=== PATIENT | female | born 1995 | race Caucasian/White ===

== ENCOUNTER 2018-09-17 18:10 | Emergency (ER) | payer SELFPAY ==
[~2018-09-17] VITALS: Ht 167.6 cm; Wt 73.8 kg
[~2018-09-17 18:10] MED LIST: ALBU8.5H8; LORA-407
[2018-09-17 18:15] VITALS: Ht 167.6 cm; Wt 73.8 kg
[2018-09-17] MEDS ORDERED: BENZ-6 PO (20:18)
--- NOTE | 2018-09-17 20:24 | ERD ---
ER Documentation Chief Complaint Chief Complaint Complains of a cough with vomiting x 1 week HPI 23 year old female patient with a past medical history of asthma the ED complaining of a productive cough that started 1 week ago. Patient reports that she is tried taking Promethazine DM without any relief of her symptoms. Denies any neck stiffness, fever, chills, nausea, vomiting, diarrhea chest pain, shortness of breath, wheezing. Denies any sick contacts. ROS All systems reviewed and are negative except as per history of present illness. Medications Home Meds Active Scripts Benzonatate* (Tessalon Perle*) 100 Mg Capsule, 100 MG PO Q8H PRN for COUGH, #20 CAP Prov:DANAE CHEEK PA-C 09/17/18 Reported Medications Albuterol Sulfate* (Proair HFA*) 8.5 Gm Hfa.aer.ad 06/27/10 Loratadine (Claritin) 10 Mg Tablet 06/27/10 Allergies Allergies: Coded Allergies: Acetaminophen (Verified Allergy, Mild, rash, 06/27/10) Chlorpheniramine (Verified Allergy, Mild, rash, 06/27/10) Dextromethorphan (Verified Allergy, Mild, rash, 06/27/10) Phenylpropanolamine (Verified Allergy, Mild, rash, 06/27/10) PMhx/Soc History of Surgery: No Hx Neurological Disorder: No Hx Respiratory Disorders: Yes (asthma) Hx Cardiac Disorders: No Hx Psychiatric Problems: No Hx Alcohol Use: No Hx Substance Use: No Hx Tobacco Use: No FmHx Family History: No diabetes, No coronary disease Physical Exam Vitals Vital Signs Date Temp Pulse Resp B/P (MAP) Pulse Ox O2 O2 Flow FiO2 Time Delivery Rate 09/17/18 98.8 84 20 134/83 99 18:15 (100) Physical Exam Const: [id number]-kfg-[id number], well-nourished. In no acute distress. Head: Atraumatic, normocephalic Eyes: Normal Conjunctiva without injection. No purulent discharge. PERRL. EOMI ENT: Normal external ear. Ear canal without erythema. Tympanic membrane pearly marino without effusion or bulging. Nasal canal clear with normal turbinates. Moist oropharynx without tonsillar exudates. Non-erythematous pharynx. Uvula midline. No drooling. No trismus. Neck: Full range of motion. No meningismus. No cervical lymphadenopathy. Resp: Clear to auscultation bilaterally. No wheezing, rhonchi, rales, or crackles. No accessory muscle use. No retractions. Cardio: Regular rate and rhythm. No murmurs, rubs or gallops. Abd: Soft, non tender, non distended. Normal bowel sounds. No palpable masses. No rebound tenderness. No guarding. Skin: No petechiae or rashes Back: No midline tenderness. No CVA tenderness. Ext: No cyanosis, or edema. Neur: Awake and alert. Psych: Normal Mood and Affect Results 24 hrs Laboratory Tests Test 09/17/18 20:27 POC Beta HCG, Qualitative NEGATIVE Procedures/MDM 23-year-old female patient with past medical history of asthma presents to ED complaining of cough that started 1 week ago. Patient is afebrile and nontoxic- appearing. This patient presents to the ED with symptoms consistent with a viral acute upper respiratory infection. Patient's physical exam include lungs which were clear to auscultation and a normal pulse oximetry. There is a low suspicion for pneumonia, pneumothorax, mononucleosis, pulmonary embolism, epiglottitis, otitis media, otitis externa, viral/strep pharyngitis, sinusitis, myocarditis, pericarditis, endocarditis, peritonsillar abscess, mastoiditis, retropharyngeal abscess, meningitis, sepsis, acute abdomen or other emergent conditions. Fluids, rest, and symptomatic treatment are recommended for the management of patient's symptoms. Diagnosis: Cough Discharge medications: Ronald Story Follow up with primary care physician in 1-2 days. Instructed patient to return to the ED sooner for any worsening symptoms. Patient's questions were answered. Patient is hemodynamically stable. Patient understood and agreed with discharge plan. Patient discharged stable. Disclaimer: Inadvertent spelling and grammatical errors are likely due to EHR/dictation software use and do not reflect on the overall quality of patient care. Also, please note that the electronic time recorded on this note does not necessarily reflect the actual time of the patient encounter. Departure Diagnosis: Primary Impression: Cough Condition: Stable Patient Instructions: Uri, Viral, No Abx (Adult) Referrals: COMMUNITY CLINICS YOU HAVE RECEIVED A MEDICAL SCREENING EXAM AND THE RESULTS INDICATE THAT YOU DO NOT HAVE A CONDITION THAT REQUIRES URGENT TREATMENT IN THE EMERGENCY DEPARTMENT. FURTHER EVALUATION AND TREATMENT OF YOUR CONDITION CAN WAIT UNTIL YOU ARE SEEN IN YOUR DOCTORS OFFICE WITHIN THE NEXT 1-2 DAYS. IT IS YOUR RESPONSIBILITY TO MAKE AN APPOINTMENT FOR FOLOW-UP CARE. IF YOU HAVE A PRIMARY DOCTOR --you should call your primary doctor and schedule an appointment IF YOU DO NOT HAVE A PRIMARY DOCTOR YOU CAN CALL OUR PHYSICIAN REFERRAL HOTLINE AT IF YOU CAN NOT AFFORD TO SEE A PHYSICIAN YOU CAN CHOSE FROM THE FOLLOWING [facility] [address] [facility] [address] [facility] [address] [facility] [address] [facility] [address] [facility]. [facility] [address] [facility]. [facility] YOU HAVE RECEIVED A MEDICAL SCREENING EXAM AND THE RESULTS INDICATE THAT YOU DO NOT HAVE A CONDITION THAT REQUIRES URGENT TREATMENT IN THE EMERGENCY DEPARTMENT. FURTHER EVALUATION AND TREATMENT OF YOUR CONDITION CAN WAIT UNTIL YOU ARE SEEN IN YOUR DOCTORS OFFICE WITHIN THE NEXT 1-2 DAYS. IT IS YOUR RESPONSIBILITY TO MAKE AN APPOINTMENT FOR FOLOW-UP CARE. IF YOU HAVE A PRIMARY DOCTOR --you should call your primary doctor and schedule and appointment IF YOU DO NOT HAVE A PRIMARY DOCTOR YOU CAN CALL OUR PHYSICIAN REFERRAL HOTLINE AT . IF YOU CAN NOT AFFORD TO SEE A PHYSICIAN YOU CAN CHOSE FROM THE FOLLOWING [facility] INSTITUTIONS: [facility] [address] [place] [address] [facility] [address] [place] [address] [facility] [address] [place] [address] [facility] Additional Instructions: Call your primary care doctor TOMORROW for an appointment during the next 2-3 days.See the doctor sooner or return here if your condition worsens before your appointment time. DANAE CHEEK PA-C Sep 17, 2018 20:24
[2018-09-17 20:58] VITALS: BP 122/71; PULSE 78; RESP 18
== END 2018-09-17 20:59 | disposition home or self-care (01) ==
LOC: FTE 18:10
DX: R05 Cough (principal); J45.909 Unspecified asthma, uncomplicated
CPT/HCPCS: 81025; 99283

== ENCOUNTER 2019-02-15 18:01 | Emergency (ER) | payer OTHER ==
[~2019-02-15] VITALS: Ht 160 cm; Wt 74.2 kg
[~2019-02-15 18:01] MED LIST changes: +BENZ-6 PO
[2019-02-15 18:53] VITALS: Ht 160 cm; Wt 74.2 kg
[2019-02-15] MEDS ORDERED: hydrOXYzine PAMOATE 25 MG CAP PO ONE (20:30)
[2019-02-15] MEDS ORDERED: HYDR25CA PO (21:16)
[2019-02-15 21:31] VITALS: BP 115/71; PULSE 68; RESP 18
--- NOTE | 2019-02-16 02:57 | ERD ---
ER Documentation Chief Complaint Chief Complaint RA; ANXIETY X1HR AGO HPI This is a 23-year-old female patient presents to emergency room with complaint of panic attack approximately 1 hour [employer]INGLE [employer]ING [employer]INE [employer]. Patient stated she felt dizzy and nauseated after taking her lunch break and this sent her into having a panic attack. Reports history of previous panic attacks. Denies fevers or recent illness. No headache. No chest pain, no shortness of breath. Symptoms have resolved at this time. Chronic medical problems. ROS All systems reviewed and are negative except as per history of present illness. Medications Home Meds Active Scripts Hydroxyzine Pamoate* (Vistaril*) 25 Mg Capsule, 25 MG PO Q6H PRN for ANXIETY for 10 Days, #10 CAP Prov:RADHA GLEASON [employer]AN [employer]OURCE INTERN 02/15/19 Benzonatate* (Tessalon Perle*) 100 Mg Capsule, 100 MG PO Q8H PRN for COUGH, #20 CAP Prov:DANAE CHEEK PA-C 09/17/18 Reported Medications Albuterol Sulfate* (Proair HFA*) 8.5 Gm Hfa.aer.ad 06/27/10 Loratadine (Claritin) 10 Mg Tablet 06/27/10 Allergies Allergies: Coded Allergies: acetaminophen (Verified Allergy, Mild, rash, 06/27/10) chlorpheniramine (Verified Allergy, Mild, rash, 06/27/10) dextromethorphan (Verified Allergy, Mild, rash, 06/27/10) phenylpropanolamine (Verified Allergy, Mild, rash, 06/27/10) PMhx/Soc History of Surgery: No Anesthesia Reaction: No Hx Neurological Disorder: No Hx Respiratory Disorders: Yes (asthma) Hx Cardiac Disorders: No Hx Psychiatric Problems: No Hx Miscellaneous Medical Probl: No Hx Alcohol Use: No Hx Substance Use: No Hx Tobacco Use: No Smoking Status: Current every day smoker FmHx Family History: No diabetes, No coronary disease, No other Physical Exam Vitals Vital Signs Date Temp Pulse Resp B/P (MAP) Pulse Ox O2 O2 Flow FiO2 Time Delivery Rate 02/15/19 98.2 68 18 115/71 98 Room Air 21:31 (86) 02/15/19 97.8 63 19 142/67 100 18:53 (92) Physical Exam Const: No acute distress Head: Atraumatic Eyes: Normal Conjunctiva, PERRL, EOMI ENT: Normal External Ears, Nose and Mouth. Neck: Full range of motion. No meningismus. No lymphadenopathy, no thyromegaly Resp: Clear to auscultation bilaterally Cardio: Regular rate and rhythm, no murmurs Abd: Soft, non tender, non distended. Normal bowel sounds Skin: No petechiae or rashes Back: No midline or flank tenderness Ext: No cyanosis, or edema Neur: Awake and alert, steady gait, equal smile, normal [id number]-hq-[id number] test. Psych: Normal Mood and Affect, denies HI/SI Results 24 hrs Laboratory Tests Test 02/15/19 20:08 Bedside Urine pH (LAB) 6.0 Bedside Urine Protein (LAB) 1+ Bedside Urine Glucose (UA) Negative Bedside Urine Ketones (LAB) 2+ Bedside Urine Blood 3+ Bedside Urine Nitrite (LAB) Negative Bedside Urine Leukocyte Esterase (L Trace POC Beta HCG, Qualitative NEGATIVE Current Medications Medications Dose Sig/Dinah Start Time Status Last (Trade) Ordered Route PRN Stop Time Admin Dose Reason Admin Hydroxyzine 25 mg ONCE ONCE 02/15/19 DC 02/15/19 Pamoate PO 20:30 20:48 (Vistaril) 02/15/19 20:31 Procedures/MDM This is a 23-year-old female patient who presents emergency room with complaint of having panic attack. ED COURSE: The patient was stable throughout ED course. I kept the patient and/or family informed of laboratory and diagnostic imaging results throughout the ED course. MEDICATIONS GIVEN: Vistaril Patient tolerated medication well with no adverse reactions. Patient reported improvement in anxiety. MDM: Patient has been observed during ED course, patient has remained stable. At time of reevaluation and discharge patient states she is no longer having dizziness, nausea has resolved, no longer feeling symptoms of panic. Patient states she is ready for discharge. Patient has been provided with a prescription for Vistaril with instructions on use and instructed to follow-up with her primary care provider for referral for behavioral health. DISPOSITION: The patient has been discharge home to follow-up with community physician. Departure Diagnosis: Primary Impression: Dehydration Additional Impression: Anxiety Condition: Stable Patient Instructions: Dehydration, Anxiety Reaction Referrals: COMMUNITY CLINICS YOU HAVE RECEIVED A MEDICAL SCREENING EXAM AND THE RESULTS INDICATE THAT YOU DO NOT HAVE A CONDITION THAT REQUIRES URGENT TREATMENT IN THE EMERGENCY DEPARTMENT. FURTHER EVALUATION AND TREATMENT OF YOUR CONDITION CAN WAIT UNTIL YOU ARE SEEN IN YOUR DOCTORS OFFICE WITHIN THE NEXT 1-2 DAYS. IT IS YOUR RESPONSIBILITY TO MAKE AN APPOINTMENT FOR FOLOW-UP CARE. IF YOU HAVE A PRIMARY DOCTOR --you should call your primary doctor and schedule an appointment IF YOU DO NOT HAVE A PRIMARY DOCTOR YOU CAN CALL OUR PHYSICIAN REFERRAL HOTLINE AT IF YOU CAN NOT AFFORD TO SEE A PHYSICIAN YOU CAN CHOSE FROM THE FOLLOWING [facility] CLINICS [facility] [address] [facility] [address] [facility] [address] [facility] [address] [facility] [address] [facility]. [facility]. [address] Additional Instructions: Thank you very much for allowing us to participate in your care. Your health and safety is our top priority at [facility]. Call your primary care doctor TOMORROW for an appointment during the next 2-4 days and bring all the information and medications prescribed. Have prescriptions filled and follow precisely the directions on the label. If the symptoms get worse and your provider is unavailable, return to the Emergency Department immediately. RADHA GLEASON NP February 16, 2019 02:57
== END 2019-02-15 21:32 | disposition home or self-care (01) ==
LOC: FTE 18:01
DX: E86.0 Dehydration (principal); J45.909 Unspecified asthma, uncomplicated; F17.210 Nicotine dependence, cigarettes, uncomplicated
CPT/HCPCS: 81003; 81025; Z7502; Z7610; 99283